=== PATIENT | female | born 1970 | race African-American/Black ===

== ENCOUNTER → 2016-12-09 | Day surgery (SDC) | payer BC ==
[~2016-12-09] MED LIST: BUPIVACAINE/EPINEPHRINE 0.5% PF 30 ML VIAL ONE; CYCL1TAB29 PO; HYDR-3533 PO; KETOROLAC TROMETHAMINE 30 MG/ML (IVP) VIAL IV PUSH ONE; LACTATED RINGER'S 1000 ML INJ 1,000 ML ONE; MIDAZOLAM HCL 2 MG/2 ML VIAL ONE; NAPR500 PO; ONDANSETRON HCL 4 MG/2 ML VIAL IV PUSH ONE; PROPOFOL 200 MG/20 ML AMP IV ONE; ceFAZolin 2 GM PREMIX 50 ML ONE
--- NOTE | 2016-12-09 14:04 | TN ---
cc: RAMAKRISHNA UY M.D. DATE OF SURGERY: 12/09/2016 PREOPERATIVE DIAGNOSIS Symptomatic right inguinal hernia. POSTOPERATIVE DIAGNOSIS 1. Symptomatic right inguinal hernia. 2. Indirect right inguinal hernia. PROCEDURE PERFORMED Laparoscopic right inguinal hernia repair with mesh. SURGEON Ramakrishna Yu [employer] Adele Carbajal, MS III ANESTHESIA General LMA. COMPLICATIONS None. INDICATION FOR PROCEDURE Ms. Pritchett is a pleasant 46-year-old -[place] female who reported a painful bulge in her right groin. She reported that she would push it back in and feel a popping sensation. She was seen and evaluated in the office. By physical exam I could not appreciate a hernia but rather made the diagnosis based on the patient's detailed clinical history. I offered her laparoscopic and open inguinal hernia repair. I recommend a laparoscopic so we could confirm the location of the hernia due to my inability to feel the hernia on physical exam in the office. She was agreeable. DETAILS OF PROCEDURE The patient was identified, brought to the operating room and placed supine on the operating table. After adequate general anesthesia was achieved with LMA the anterior abdomen was prepped and draped in a standard surgical fashion. The infraumbilical space was anesthetized with 0.25% Marcaine. An infraumbilical incision was made. Dissection was carried down through subcutaneous tissue to the anterior rectus fascia. The anterior rectus fascia was then incised vertically off the midline. The rectus muscle was then retracted laterally. The preperitoneal space was entered with blunt finger dissection. A blunt dissecting balloon was inserted. The preperitoneal space was insufflated with 30 pumps of air under direct vision using a 0 degree laparoscope. Next, the preperitoneal dissecting balloon was removed and the balloon trocar inserted. The preperitoneal space was insufflated to 11 mmHg using CO2 gas. Next, two 5 mm trocars were placed in the lower midline under direct vision. Attention was directed to the right groin where the pubic tubercle and Anuj's ligament were identified. Just medial and superior to Anuj's ligament was a peritoneal hernia sac traveling up with the round ligament. Using careful dissection the hernia sac was dissected off of the round ligament. A posterior window was then made behind the round ligament. Once the peritoneum had been freed up completely the defect was identified. A piece of polypropylene mesh was inserted with a slit cut for the round ligament. The mesh was then placed behind the round ligament and then re-approximated anteriorly using the tacking device. The mesh was then secured medially at Anuj's ligament and pubic tubercle and superior along the posterior abdominal wall fascia. With this the defect was well-covered. An onlay mesh was then placed in order to support the slit. This mesh was placed on top of the first mesh and it was secured medially and laterally in order to overlap the slit. With this the indirect and direct spaces were well-covered by mesh. The round ligament was allowed to pass through the mesh without any compromise. 0.25% Marcaine was injected in the operative field. The inferior border of the mesh was then held down, the preperitoneal space was desufflated and the peritoneum was seen to roll up over the mesh. All trocars were removed under direct vision. The anterior rectus fascia was repaired with 0 Vicryl in [id number] fashion. The skin was closed with 4-0 Vicryl. The patient tolerated the procedure well, was awakened and brought to Recovery in stable condition. MD DINO Choi/MARISSA /1:39 PM /1:50 PM
== END | disposition home or self-care (01) ==
LOC: ESDC 09:09
PROVIDERS: ATTEND Surgery Trauma Surgery
DX: K40.90 Unilateral inguinal hernia, without obstruction or gangrene, not specified as recurrent (principal)
CPT/HCPCS: 00840; 49650; J0690; J1885; J2250; J2405; J3010; J7120; C1727; C1781